=== PATIENT | female | born 1980 | race Caucasian/White ===

== ENCOUNTER 2019-09-08 12:15 | Emergency (ER) | payer BC, SELFPAY ==
[2019-09-08 12:16] VITALS: BP 200/121; PULSE 83; RESP 20; TEMP 36.4; O2SAT 98; BMI 44.6
[2019-09-08] MEDS: 0.9% Normal Saline 1,000 ML 250 ML IV (12:53)
[2019-09-08] MEDS: Ondansetron 4 MG/2 ML Vial IV (12:53)
[2019-09-08] MEDS: Ketorolac 30 MG/ML Syringe IV (12:54)
[2019-09-08 13:01] LABS: Bedside Glucose 239 mg/dL (70-110)
[2019-09-08 13:07] LABS: Bacteria 0 SEEN /hpf (None Seen); Mucous, Urine 0 SEEN /hpf (<or=2+)
[2019-09-08 13:14] LABS: Color, Urine Red (Yellow); Glucose, Dipstick 250 mg/dl (Normal); Ketone-Dipstick 15 mg/dl (Negative); Leukocyte Esterase-Dipstick 25 /ul (Negative); Nitrite-Dipstick Positive (Negative); Occult Blood-Urine 250 /ul (Negative); Protein-Dipstick 100 mg/dl (Negative); Specific Gravity, Urine 1.025 (1.002-1.030); Urine Bilirubin Dipstick Negative (Negative); Urine Clarity Cloudy (Clear); Urine Urobilinogen Normal (Normal)
[2019-09-08 13:28] LABS: Squamous Epithelial Cells - UA 0-5 SEEN /hpf (5-10); White Blood Cells 5-10 SEEN /hpf (0-5)
[2019-09-08 13:29] LABS: Red Blood Cells-Urine > 100 SEEN /hpf (0-5)
--- NOTE | 2019-09-08 13:33 | CT_ITS ---
STUDY: CT ABDOMEN AND PELVIS WITHOUT CONTRAST REASON FOR EXAM: Female, 39 years old. RT FLANK PAIN/DYSURIA RADIATION DOSAGE (If Supplied By Facility): CTDIvol = ( 30.83 ) mGy, DLP = ( 1663.75 ) mGycm TECHNIQUE: Transaxial images were obtained from the dome of the diaphragm to the symphysis pubis without oral contrast, and without intravenous contrast. Sagittal and coronal images were reconstructed. Individualized dose optimization techniques were used for this CT. COMPARISON: None. FINDINGS: The visualized lung bases are unremarkable. The visualized portions of the heart are within normal limits. There is decreased attenuation of the liver consistent with steatosis. Normal gallbladder and extrahepatic biliary system. Normal spleen. Normal pancreas. Normal bilateral adrenal glands. Mild degree of right hydronephrosis. Mild degree of right perinephric and periureteric stranding. This is due to a 3 mm calculus in the distal portion of the right ureter just proximal to the ureterovesical junction. Normal left kidney. Normal visualized stomach. Normal small intestine. Normal colon. The appendix is visualized and appears normal. Normal abdominal aorta. Normal inferior vena cava. Normal retroperitoneum. Normal urinary bladder. ESSURE devices are seen in both fallopian tubes. Normal abdominal wall. Normal osseous structures. CT/Abdomen/Pelvis without Cont IMPRESSION: 3 mm calculus in the distal portion of the right ureter causing mild degree of right perinephric stranding and periureteric stranding. Fatty infiltration of the liver. Electronically Signed: Bryan Castillo, at 14:23 EST , Service support ,
[2019-09-08 13:40] LABS: Internal QC Validated? YES +Cl - CLEAR BKGD; Pregnancy, Serum, hCG Quali. NEGATIVE Negative
--- NOTE | 2019-09-08 14:33 | ED.DCSUM_ITS ---
- ER Visit Summary Date of Service: 09/08/19 Chief Complaint: Right flank pain History of Present Illness: The patient is a [address] Riley. She reports that she has right flank pain that began abruptly today. It was 8 out of 10 at worst and is 6 out of 10 currently. States nothing makes the pain worse. Is relieved by standing up. She is had nausea without vomiting. No diarrhea. Last bowel was today. No melena medication. She does report that she had dysuria and frequency today as well. She just finished her menstrual's period. Physical Examination: Vitals: Stable. Afebrile. General: Well-nourished and well-developed. Head: Normocephalic atraumatic. Neck: Supple, no lymphadenopathy. No JVD. Nontender. Cardiovascular: Regular rate and rhythm. No murmurs. Respiratory: No respiratory distress. Clear to auscultation bilaterally. Abdominal: Soft, nontender, nondistended, normal bowel sounds. No guarding, rebound, or peritoneal signs. Back: Mild right CVA tenderness. Extremities: Nontender, no edema. Skin: Normal color, no rash. Neurologic: Alert and oriented ?3. Cranial nerves II through XII are intact. Normal strength and sensation. Psych: Normal affect. Test Results: UA has greater than 100 reds, 5-10 whites, nitrite and leukocyte Estrace positive. test is negative. Clinical Impression(s) from Imaging Studies Abdomen/Pelvis CT 09/08/19 13:33 IMPRESSION: 3 mm calculus in the distal portion of the right ureter causing mild degree of right perinephric stranding and periureteric stranding. Fatty infiltration of the liver. Electronically Signed: Bryan Castillo, at 14:23 EST , Service support , Emergency Department Course and Treatment: Patient was treated with Toradol and Zofran IV. Her urine was sent for culture and she was given a dose of Rocephin IV. She is resting comfortably and would like to go home. Treatment Plan: Patient be discharged on Keflex, naproxen, Zofran, and Percocet. Instructed to follow-up with her primary care physician in 2 days to get the results of the urine culture. Follow-up Dr. Perez in 1 week if not improving. Return to the emergency department for any worsening symptoms. Disposition: To home in improved and stable condition. Impression: 1 1. Right ureterolithiasis. This note was generated with [employer] dictation software. It may contain incorrect words, spelling, and punctuation that were not noted in review of the chart pr ior to signing ED Disposition - Plan for ED Patient: Disposition: Home or Assisted Living Instructions: KIDNEY STONE w/ Colic Prescriptions: Cephalexin [Keflex] 500 mg PO Q12 #14 cap Prescription Printed Naproxen [Naprosyn] 500 mg PO BID #14 tab Prescription Printed Oxycodone HCl/Acetaminophen [Percocet 5/325] 1 tab PO Q6H PRN PRN 3 Days #12 tab PRN Reason: Pain Prescription Printed Ondansetron [Zofran Odt] 4 mg PO Q8H PRN PRN #10 tab PRN Reason: Nausea Prescription Printed Referrals: Alexis Riley MD [Primary Care Provider] - 2 Days Brian Perez MD [STAFF PHYSICIAN] - 1 Week if not improving
[2019-09-08] MEDS: Ceftriaxone 1 GM/50 ML BAG IV (14:44)
[2019-09-08 14:45] VITALS: TEMP 36.9
[2019-09-08 15:52] VITALS: BP 143/88; PULSE 70; RESP 16; O2SAT 97
== END 2019-09-08 15:56 | disposition home or self-care (01) ==
LOC: ED 12:57
PROVIDERS: Emergency Provider Emergency Medicine
DX: N20.1 Calculus of ureter (principal); K76.0 Fatty (change of) liver, not elsewhere classified
CPT/HCPCS: 74176; 81001; 82962; 84703; 87077; 87086; 87088; 87186; 96361; 96365; 96375; 99283; J7030; A4216; J2405